=== PATIENT | female | born 1970 | race Caucasian/White ===

== ENCOUNTER 2017-11-04 23:54 | Emergency (ER) | payer OTHER ==
[~2017-11-04] VITALS: Ht 165.1 cm; Wt 108.9 kg
[~2017-11-04 23:54] MED LIST: IBUPROFEN 800800 MG PO
[2017-11-05 00:05] VITALS: BP 164/102
[2017-11-05] MEDS ORDERED: ALLEGRA ALLERG180 MG PO (00:06)
[2017-11-05] MEDS ORDERED: UNICOMPLEX M TA1 TA1 PO (00:07)
[2017-11-05] MEDS ORDERED: HYDROCODONE-AP1 EAC6 PO (00:22)
== END 2017-11-05 00:39 | disposition home or self-care (01) ==
LOC: M.ERS 23:54
DX: T23.001A Burn of unspecified degree of right hand, unspecified site, initial encounter (principal); T31.0 Burns involving less than 10% of body surface; Z88.0 Allergy status to penicillin; X08.8XXA Exposure to other specified smoke, fire and flames, initial encounter; Y93.89 Activity, other specified; Y92.89 Other specified places as the place of occurrence of the external cause; Y99.8 Other external cause status

== ENCOUNTER → 2018-01-05 | Outpatient (CLI) | payer OTHER ==
[~2018-01-05] MED LIST changes: +ALLEGRA ALLERG180 MG PO; +HYDROCODONE-AP1 EAC6 PO; +UNICOMPLEX M TA1 TA1 PO
[2018-01-05 12:52] LABS: ABSOLUTE BASOPHILS 0.1 thou/uL (0.0-0.2); ABSOLUTE EOSINOPHILS 0.2 thou/uL (0.0-0.7); ABSOLUTE LYMPHOCYTES 1.6 thou/uL (0.8-5.3); ABSOLUTE MONOCYTES 0.3 thou/uL (0.0-1.2); BASOPHILS 1.1 %; EOSINOPHILS 2.9 %; HEMATOCRIT 34.5 % (37.0-47.0); HEMOGLOBIN 11.4 gm/dL (12.0-15.0); MCH 27.9 pg (26.0-34.0); MCV 84.5 fL (80.0-100.0); MONOCYTES 5.4 %; NUCLEATED RBCS 0 /100WBC; PLATELET COUNT* 304 thou/uL (150-400); POLYS 64.6 %; RBC 4.08 mil/uL (4.20-5.00); RDW-CV 15.3 % (10.5-14.5); WBC 6.2 thou/uL (4.0-11.0)
[2018-01-05 13:08] LABS: % SATURATION 7 % (20-39); IRON 31 ug/dL (50-175)
== END ==
LOC: M.ULTRA 12:30
PROVIDERS: Nurse Practitioner
DX: N93.9 Abnormal uterine and vaginal bleeding, unspecified (principal); N92.4 Excessive bleeding in the premenopausal period